=== PATIENT | female | born 1990 | race Hispanic/Latino ===

== ENCOUNTER 2018-12-31 09:12 | Emergency (ER) | payer BC ==
[2018-12-31 09:23] VITALS: TEMP 98.6
--- NOTE | 2018-12-31 11:57 | ED PDOC ---
Arrival/HPI - General Chief Complaint: Lower Extremity Problem/Injury Time Seen by Provider: 12/31/18 09:25 Historian: Patient - History of Present Illness Narrative History of Present Illness (Text): 12/31/18 11:57 28yr old female presents today with right leg pain. pt states she has been having an achy pain behind the right knee that goes into the thigh posteriorly and sometimes into the calf. pt states she also at times has this pain on the left leg. pt denies any trauma or injury. no fever/chills. no cp or sob. no dizziness or weakness. pt states she is being followed by PMD and multiple specialists for an array of symptoms. Past Medical History - Provider Review Nursing Documentation Reviewed: Yes - Travel History Have you recently traveled outside [place] w/in the past 3 mons?: No - Cardiac Hx Cardiac Disorders: Yes Hx Hypertension: Yes - Pulmonary Hx Respiratory Disorders: Yes - Neurological Hx Neurological Disorder: No - HEENT Hx HEENT Disorder: No - Renal Hx Renal Disorder: No - Endocrine/Metabolic Hx Endocrine Disorders: No - Hematological/Oncological Hx Blood Disorders: No - Integumentary Hx Dermatological Disorder: No - Musculoskeletal/Rheumatological Hx Musculoskeletal Disorders: Yes Hx Back Pain: Yes - Gastrointestinal Hx Gastrointestinal Disorders: Yes - Genitourinary/Gynecological Hx Genitourinary Disorders: Yes Hx Urinary Tract Infection: Yes - Psychiatric Hx Psychophysiologic Disorder: Yes Hx Anxiety: Yes Hx Substance Use: No - Surgical History Other/Comment: ENT Family/Social History - Physician Review Nursing Documentation Reviewed: Yes Family/Social History: Unknown Family HX Smoking Status: Never Smoked Hx Alcohol Use: Yes Frequency of alcohol use: Socially Hx Substance Use: No Allergies/Home Meds Allergies/Adverse Reactions: Allergies No Known Allergies Allergy (Verified 12/31/18 09:16) Home Medications: Home Meds Medication Instructions Recorded Confirmed Albuterol Sulfate [Ventolin Hfa] 2 puff NEB Q4 PRN 12/31/18 12/31/18 Alprazolam [Xanax] 1 tab PO PRN PRN 12/31/18 12/31/18 Cyclobenzaprine [Flexeril] 5 mg PO HS 12/31/18 12/31/18 Naproxen [EC-Naprosyn] 500 mg PO Q6 PRN 12/31/18 12/31/18 hydroCHLOROthiazide [Microzide] 12.5 mg PO DAILY 12/31/18 12/31/18 Review of Systems - Review of Systems Constitutional: absent: Fatigue, Fevers Respiratory: absent: SOB, Cough Cardiovascular: absent: Chest Pain, Palpitations Gastrointestinal: absent: Abdominal Pain, Nausea, Vomiting Musculoskeletal: Arthralgias (bilateral leg pain, right greater than left) Skin: absent: Rash, Pruritis Neurological: absent: Headache, Dizziness Psychiatric: absent: Anxiety, Depression Physical Exam Vital Signs Reviewed: Yes Vital Signs Temp Pulse Resp BP Pulse Ox 12/31/18 09:18 98.6 F 88 16 129/88 100 Temperature: Afebrile Blood Pressure: Normal Pulse: Regular Respiratory Rate: Normal Appearance: Positive for: Well-Appearing, Non-Toxic, Comfortable Pain Distress: None Mental Status: Positive for: Alert and Oriented X 3 - Systems Exam Head: Present: Atraumatic Mouth: Present: Moist Mucous Membranes Respiratory/Chest: Present: Clear to Auscultation, Good Air Exchange. No: Respiratory Distress, Accessory Muscle Use Cardiovascular: Present: Regular Rate and Rhythm, Normal S1, S2. No: Murmurs Back: Present: Normal Inspection Upper Extremity: Present: Normal ROM Lower Extremity: Present: NORMAL PULSES, Normal ROM, Neurovascularly Intact, Capillary Refill < 2 s. No: CALF TENDERNESS, Tenderness, Swelling, Erythema, Temperature Abnormalties Neurological: Present: GCS=15, Speech Normal Skin: Present: Warm, Dry, Normal Color. No: Rashes Psychiatric: Present: Alert, Oriented x 3 Medical Decision Making ED Course and Treatment: 12/31/18 12:00 Patient is nontoxic well-appearing in no distress with stable vital signs lungs are clear to auscultation bilaterally. pt refused any medications for pain; states she just wants to know why she is having occasional pain. Venous duplex of the lower extremities: negative for DVT bilaterally X-rays of the right knee: No fracture Patient reassessment; patient is nontoxic well-appearing in no distress with stable vital signs I discussed the results with patient about followup with a primary care physician within the next 2 days as well as the orthopedist. I've advised return if symptoms worsen persist or if there's concerning symptoms develop. Patient verbalizes understanding of discharge instructions and need for immediate followup. All aspects of this case were discussed the attending of record. Impression: Leg pain, knee pain Followup primary care physician within the next 2 days Follow up with the orthopedist within the next 2 days Return if symptoms worsen persist or if new symptoms develop - RAD Interpretation Radiology Orders: 12/31/18 09:51 DUPLEX LOWER EXTRM VEIN BILAT [US] Stat 12/31/18 09:52 KNEE W PATELLA RIGHT 3 VIEW [RAD] Stat Disposition/Present on Arrival - Present on Arrival Any Indicators Present on Arrival: No History of DVT/PE: No History of Uncontrolled Diabetes: No Urinary Catheter: No History of Decub. Ulcer: No History Surgical Site Infection Following: None - Disposition Have Diagnosis and Disposition been Completed?: Yes Diagnosis: Leg pain, Knee pain Disposition: HOME/ ROUTINE Disposition Time: 11:51 Patient Plan: Discharge Patient Problems: Current Active Problems Problem Status Onset Knee pain Acute Leg pain Acute Condition: GOOD Discharge Instructions (ExitCare): Knee Pain (DC) Additional Instructions: Followup primary care physician within the next 2 days Follow up with the orthopedist within the next 2 days Return if symptoms worsen persist or if new symptoms develop Prescriptions: Naproxen [Naprosyn] 500 mg PO BID #20 tablet Referrals: Charly Street MD [Staff Provider] - Follow up with primary Smitha Dinh MD [Medical Doctor] - Follow up with primary [facility] [Outside] - Follow up with primary
[2018-12-31 12:11] VITALS: BP 127/71; PULSE 85; RESP 18; O2SAT 98
--- NOTE | 2018-12-31 12:21 | RAD ---
Date of service: 12/31/2018 PROCEDURE: Right Knee and patella radiographs. HISTORY: knee pain COMPARISON: None. FINDINGS: BONES: Normal. No fracture. JOINTS: Normal. No osteoarthritis. JOINT EFFUSION: None. OTHER FINDINGS: None. IMPRESSION: Negative study
--- NOTE | 2018-12-31 14:11 | US ---
HISTORY: Leg pain and swelling. Evaluate for DVT PHYSICIAN(S): Hung Randall MD. TECHNIQUE: Duplex sonography and color-flow Doppler with graded compression were used to evaluate the deep venous systems of both lower extremities. FINDINGS: The visualized deep venous systems of both lower extremities are sonographically normal and compressible. Normal wave forms and augmentation are seen. There is no sonographic evidence for deep venous thrombosis in the visualized segments of both lower extremities. IMPRESSION: No sonographic evidence for deep venous thrombosis in the visualized segments of both lower extremities.
== END 2018-12-31 12:17 | disposition home or self-care (01) ==
LOC: ED 09:12
DX: M79.604 Pain in right leg (principal); M25.561 Pain in right knee; I10 Essential (primary) hypertension